=== PATIENT | female | born 1955 | race Caucasian/White ===

== ENCOUNTER 2017-05-23 14:39 | Emergency (ER) | payer SELFPAY ==
[~2017-05-23] VITALS: Ht 165.1 cm; Wt 65.0 kg
[2017-05-23 14:41] VITALS: BP 187/86; PULSE 70; RESP 15; TEMP 98.4; O2SAT 98
[2017-05-23] MEDS ORDERED: PROPARACAINE HCL 0.5% OPHT SOLN 15 ML BTL LEFT EYE ONE (16:00)
--- NOTE | 2017-05-23 16:43 | PD ---
HPI Chief Complaint: ENT Complaint Time Seen by Provider: 15:40 Travel History International Travel<30 days: No Contact w/Intl Traveler<30days: No Traveled to known affect area: No History of Present Illness HPI The patient was seen and examined in the presence of the nurse. This patient complains of getting superglue in her left eye. She was not wearing her contact lenses at the time. She mistook it for her eyedrop when she put a drop in. This happened at 9 AM this morning. Duration is 7-1/2 hours. She is able to blink without difficulty. She has some redness and irritation to her left eye. She flushed it out as good as she could. Since it hadn't returned to normal 7-1/2 hours later she then came in. Symptoms severity is moderate. No alleviating factors PFSH Past Medical History Respiratory: Yes (ASTHMA) Social History Alcohol Use: No Tobacco Use: No Substance Use: No Allergies-Medications (Allergen,Severity, Reaction): Coded Allergies: No Known Allergies (Unverified , 05/23/17) Review of Systems General / Constitutional: No: Fever Eyes: Positive: Redness, Tearing, No: Visual changes HENT: No: Headaches Cardiovascular: No: Chest Pain or Discomfort Respiratory: No: Shortness of Breath Gastrointestinal: No: Abdominal Pain Genitourinary: No: Dysuria Musculoskeletal: No: Pain Skin: No Rash Neurologic: No: Weakness Psychiatric: No: Depression Endocrine: No: Polydipsia Hematologic/Lymphatic: No: Easy Bruising Physical Exam Narrative SKIN: Focused skin assessment reveals no rash or ulcers. Skin is warm and dry. Palpation shows no induration or nodules. Psych: Normal mood and affect. Normal insight and judgment. Right sclerae clear Left sclera shows diffuse injection No drainage from the left eye. Pupil function is normal bilateral Proparacaine placed in the left eye Fluorescein exam of the left eye reveals no corneal uptake or foreign body with lid eversion I flushed out the left eye multiple times PH test of the left eye reveals a pH of 7-8 All of her symptoms went away with proparacaine administration Data Data Last Documented VS Vital Signs Date Time Temp Pulse Resp B/P (MAP) Pulse Ox O2 Delivery O2 Flow Rate FiO2 05/23/17 14:41 98.4 70 15 187/86 (119) 98 Orders Orders Proparacaine 0.5% Opth Soln (Alcaine 0.5 (05/23/17 16:00) [facility] Medical Decision Making Medical Screen Exam Complete: Yes Emergency Medical Condition: Yes Medical Record Reviewed: Yes Differential Diagnosis Chemical Exposure to eye, foreign body, abrasion Narrative Course I have reviewed the patient's electronic medical record. After evaluation and flushing out of the eyes she is stable for outpatient ophthalmology evaluation. Her pH is normal Fluorescein exam is normal Diagnosis Primary Impression: Chemical exposure of eye Additional Instructions: The patient was advised to follow up with db2 dba and return if they worsen. Avoid contact lens until this is resolved Med/Other Pt SpecificInfo: Other Disposition: 01 DISCHARGE HOME Condition: Stable Mayito Guerra MD May 23, 2017 16:43
== END 2017-05-23 16:50 | disposition home or self-care (01) ==
LOC: NEPD 14:39
DX: T15.92XA Foreign body on external eye, part unspecified, left eye, initial encounter (principal); X58.XXXA Exposure to other specified factors, initial encounter; Z77.098 Contact with and (suspected) exposure to other hazardous, chiefly nonmedicinal, chemicals; Y92.009 Unspecified place in unspecified non-institutional (private) residence as the place of occurrence of the external cause
CPT/HCPCS: 99283